=== PATIENT | female | born 1955 | race African-American/Black ===

== ENCOUNTER 2019-09-06 12:20 | Emergency (ER) | payer MEDICAID ==
[~2019-09-06] VITALS: Ht 160 cm; Wt 68.0 kg
[2019-09-06] MEDS ORDERED: KETOROLAC 30MG/ML VIAL IV ONE (14:00)
[2019-09-06 14:04] VITALS: BP 166/78
== END 2019-09-06 17:13 | disposition home or self-care (01) ==
LOC: ER 12:20
DX: S83.92XA Sprain of unspecified site of left knee, initial encounter (principal); S73.102A Unspecified sprain of left hip, initial encounter; M16.12 Unilateral primary osteoarthritis, left hip; Z98.890 Other specified postprocedural states; Z98.84 Bariatric surgery status; W18.39XA Other fall on same level, initial encounter; Y93.89 Activity, other specified; Y92.89 Other specified places as the place of occurrence of the external cause; Y99.8 Other external cause status
CPT/HCPCS: 73502; 73562; 96374; 99284; J1885